=== PATIENT | female | born 1980 | race Caucasian/White ===

== ENCOUNTER 2017-08-16 14:09 | Emergency (ER) | payer SELFPAY ==
--- NOTE | 2017-08-16 15:10 | RAD REPORT ---
EXAM DESCRIPTION: RAD - Shoulder Left 2 View - 08/16/2017 3:01 pm CLINICAL HISTORY: Trauma, left shoulder pain COMPARISON: None. TECHNIQUE: Internal and external rotation views of the left shoulder were obtained. FINDINGS: There is no fracture or dislocation. AC joint is normal in appearance. No acute or suspici ous findings. IMPRESSION: Negative two-view left shoulder examination.
--- NOTE | 2017-08-16 15:10 | RAD REPORT ---
EXAM DESCRIPTION: RAD - Chest Pa And Lat (2 Views) - 08/16/2017 3:02 pm CLINICAL HISTORY: Fall, chest pain. COMPARISON: 08/18/2016, 03/07/2016 FINDINGS: The lungs are clear. The heart is normal in size. No displaced fractures. IMPRESSION: No acute or concerning finding suspected.
--- NOTE | 2017-08-16 15:47 | ER ---
Nurse's Notes [facility] Name: Ezequiel Leonard Age: 36 yrs Sex: Female : 1980 Arrival Date: 08/16/2017 Time: 14:11 Bed 27 Private MD: None, None Diagnosis: Rhomboid spasm/ strain Presentation: 08/16 14:32 Presenting complaint: Patient states: fell from standing position on Wednesday, hit left iw shoulder on a car and tried to catch herself and injured her left hand, having extreme pain to left shoulder blade and having pain when she takes a deep breath. Transition of care: patient was not received from another setting of care. Onset of symptoms was August 13, 2017. Risk Assessment: Do you want to hurt yourself or someone else? Patient reports no desire to harm self or others. Initial Sepsis Screen: Does the patient meet any 2 criteria? No. Patient's initial sepsis screen is negative. Does the patient have a suspected source of infection? No. Patient's initial sepsis screen is negative. Care prior to arrival: None. 14:32 Method Of Arrival: Ambulatory 14:32 Acuity: ADRIANNA 3 iw 14:40 Note pt also states she has an abscess on her buttock. 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 - Social history:: Smoking status: Patient uses tobacco products, smokes one-half pack cigarettes per day. - Ebola Screening: : Patient negative for fever greater than or equal to 101.5 degrees Fahrenheit, and additional compatible Ebola Virus Disease symptoms Patient denies exposure to infectious person Patient denies travel to an Ebola-affected area in the 21 days before illness onset No symptoms or risks identified at this time. Vital Signs: 14:35 BP 156 / 116; Pulse 84; Resp 18 S; Temp 98.1(TE); Pulse Ox 97% on R/A; Weight 74.84 kg; iw Height 5 ft. 7 in. (170.18 cm); Pain 10/10; 14:35 Body Mass Index 25.84 (74.84 kg, 170.18 cm) iw ED Course: 14:11 Patient arrived in ED. mr 14:12 None, None is Private Physician. mr 14:34 Triage completed. iw 14:35 Arm band placed on. iw 14:44 Niko Barrera MD is Attending Physician. ps1 14:51 Patient moved to radiology via wheelchair. kc2 14:56 X-ray completed. Patient tolerated procedure well. kc2 14:56 Patient moved back from radiology. kc2 14:56 Shoulder Left (2 View) XRAY In Process Unspecified. EDMS 14:56 Chest Pa And Lat (2 Views) XRAY In Process Unspecified. EDMS 15:44 Irma Larios, FIDE is Primary Nurse. tl3 15:45 Fidencio Boone MD is Referral Physician. ps1 16:14 X-ray completed. Portable x-ray completed in exam room. Patient tolerated procedure kc2 well. 16:16 Wrist Left (3 View) XRAY In Process Unspecified. EDMS Administered Medications: No medications were administered Outcome: 15:46 Discharge ordered by . ps1 17:04 Patient left the ED. aa5 Signatures: Dispatcher [employer] EDMS Jolene Aleman Jocelyne Rabago RN RN iw Kimberly Larson RN RN aa5 Maryam Reed kc2 Niko Barrera MD MD ps1 Irma Larios, FIDE RN tl3 Corrections: (The following items were deleted from the chart) 14:37 14:35 Pulse 84bpm; Resp 18bpm; Spontaneous; Pulse Ox 97% RA; Temp 98.1F Temporal; 74.84 iw kg; Height 5 ft. 7 in.; BMI: 25.8; Pain 10/10; iw 14:38 14:35 BP 152 / 125; Pulse 84bpm; Resp 18bpm; Spontaneous; Pulse Ox 97% RA; Temp 98.1F iw Temporal; 74.84 kg; Height 5 ft. 7 in.; BMI: 25.8; Pain 10/10; iw
--- NOTE | 2017-08-16 15:47 | EDPHYS ---
Physician Documentation [facility] Name: Ezequiel Leonard Age: 36 yrs Sex: Female : 1980 Arrival Date: 08/16/2017 Time: 14:11 Bed 27 Private MD: None, None ED Physician Niko Barrera HPI: 08/16 15:41 This 36 yrs old Female presents to ER via Ambulatory with complaints of Fall ps1 Injury, Shoulder Pain. 15:41 Onset was 3 days ago while [place] [employer] [place]. Trip and fall. Did not hit ps1 head. No LOC. FOOSH on left. Now has subscapular pain and left wrist pain. 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 No FND. FROM of shoulder. Pain rated moderate, worse with movement. . 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 - Social history:: Smoking status: Patient uses tobacco products, smokes one-half pack cigarettes per day. - Ebola Screening: : Patient negative for fever greater than or equal to 101.5 degrees Fahrenheit, and additional compatible Ebola Virus Disease symptoms Patient denies exposure to infectious person Patient denies travel to an Ebola-affected area in the 21 days before illness onset No symptoms or risks identified at this time. ROS: 15:41 Constitutional: Negative for fever, chills, and weight loss, Eyes: Negative for injury, ps1 pain, redness, and discharge, ENT: Negative for injury, pain, and discharge, Cardiovascular: Negative for chest pain, palpitations, and edema, Respiratory: Negative for shortness of breath, cough, wheezing, and pleuritic chest pain, Abdomen/GI: Negative for abdominal pain, nausea, vomiting, diarrhea, and constipation, Back: Negative for injury and pain, Skin: Negative for injury, rash, and discoloration, Neuro: Negative for headache, weakness, numbness, tingling, and seizure. 15:41 MS/extremity: Positive for left subscapular pain. Left wrist pain. Exam: 15:41 Constitutional: This is a well developed, well nourished patient who is awake, alert, ps1 and in no acute distress. Head/Face: Normocephalic, atraumatic. Eyes: Pupils equal round and reactive to light, extra-ocular motions intact. Lids and lashes normal. Conjunctiva and sclera are non-icteric and not injected. Chest/axilla: Normal chest wall appearance and motion. Nontender with no deformity. No lesions are appreciated. Cardiovascular: Regular rate and rhythm. No gallops, murmurs, or rubs. Normal PMI, no JVD. No pulse deficits. Respiratory: Lungs have equal breath sounds bilaterally, clear to auscultation and percussion. No rales, rhonchi or wheezes noted. No increased work of breathing, no retractions or nasal flaring. Abdomen/GI: Soft, non-tender, with normal bowel sounds. No distension or tympany. No guarding or rebound. No evidence of tenderness throughout. Neuro: Awake and alert, GCS 15, oriented to person, place, time, and situation. Cranial nerves II-XII grossly intact. Sensory grossly intact. Psych: Awake, alert, with orientation to person, place and time. Behavior, mood, and affect are within normal limits. 15:41 Musculoskeletal/extremity: has subscapular/rhomboid strain and spasm. Wrist is in a brace and NV intact distally. . Vital Signs: 14:35 BP 156 / 116; Pulse 84; Resp 18 S; Temp 98.1(TE); Pulse Ox 97% on R/A; Weight 74.84 kg; iw Height 5 ft. 7 in. (170.18 cm); Pain 10/10; 14:35 Body Mass Index 25.84 (74.84 kg, 170.18 cm) iw MDM: 15:24 Patient medically screened. ps1 15:41 Data reviewed: vital signs, nurses notes, radiologic studies, plain films. ED course: ps1 pain addressed. Spoke with patient about findings. Stable for discharge. If symptoms persist, MRI recommended in 2 weeks after swelling goes down. . 08/16 14:42 Order name: Shoulder Left (2 View) XRAY; Complete Time: 15:12 snw 08/16 14:42 Order name: Chest Pa And Lat (2 Views) XRAY; Complete Time: 15:12 snw 08/16 15:48 Order name: Wrist Left (3 View) XRAY; Complete Time: 16:25 ps1 Administered Medications: No medications were administered Disposition: 08/16/17 15:46 Discharged to Home. Impression: Rhomboid spasm/ strain. - Condition is Stable. - Discharge Instructions: Muscle Cramps and Spasms, Wrist Pain. - Prescriptions for Anaprox DS 550 mg Oral Tablet - take 1 tablet by ORAL route every 12 hours As needed; 20 tablet. Robaxin 500 mg Oral Tablet - take 2 tablet by ORAL route every 6 hours As needed; 40 tablet. Medrol (Fuad) 4 mg Oral Tablets, Dose Pack - take 1 tablet by ORAL route as directed - follow package instructions; 1 packet. - Medication Reconciliation Form, Thank You Letter, Antibiotic Education, Prescription Opioid Use form. - Follow up: Fidencio Boone MD; When: As needed; Reason: Further diagnostic work-up, Recheck today's complaints, Continuance of care, Re-evaluation by your physician. Follow up: Emergency Department; When: As needed; Reason: Worsening of condition. - Problem is new. - Symptoms are unchanged. Signatures: Dispatcher [employer] EDMS Jocelyne Rabago RN RN iw Kimberly Larson RN RN aa5 Niko Barrera MD MD ps1 Corrections: (The following items were deleted from the chart) 17:04 15:46 08/16/2017 15:46 Discharged to Home. Impression: Rhomboid spasm/ strain. aa5 Condition is Stable. Forms are Medication Reconciliation Form, Thank You Letter, Antibiotic Education, Prescription Opioid Use. Follow up: Dr. Fidencio Boone; When: As needed; Reason: Further diagnostic work-up, Recheck today's complaints, Continuance of care, Re-evaluation by your physician. Follow up: Emergency Department; When: As needed; Reason: Worsening of condition. Problem is new. Symptoms are unchanged. ps1
[2017-08-16] MEDS ORDERED: DEXAMETHASONE 10 MG/ML VIAL ONE (16:02)
[2017-08-16] MEDS ORDERED: KETOROLAC 30 MG/ML INJ ONE (16:03)
--- NOTE | 2017-08-16 16:21 | RAD REPORT ---
EXAM DESCRIPTION: RAD - Wrist Left 3 View - 08/16/2017 4:17 pm CLINICAL HISTORY: Fall, wrist pain COMPARISON: None. FINDINGS: No fracture is identified. There is no dislocation or periosteal reaction noted. No foreig n body or other soft tissue abnormality. IMPRESSION: Negative left wrist examination.
== END 2017-08-16 17:04 | disposition home or self-care (01) ==
LOC: ER 14:09
DX: S46.812A Strain of other muscles, fascia and tendons at shoulder and upper arm level, left arm, initial encounter (principal); M25.532 Pain in left wrist; G93.5 Compression of brain; F17.210 Nicotine dependence, cigarettes, uncomplicated; W01.0XXA Fall on same level from slipping, tripping and stumbling without subsequent striking against object, initial encounter; Y93.9 Activity, unspecified; Y92.9 Unspecified place or not applicable; Y99.9 Unspecified external cause status
CPT/HCPCS: 71046; 99282; J1100

== ENCOUNTER 2020-10-15 15:28 | Emergency (ER) | payer OTHER ==
--- NOTE | 2020-10-15 17:54 | RAD REPORT ---
EXAM DESCRIPTION: Lukasz Velez (2 Views)10/15/2020 5:12 pm CLINICAL HISTORY: sob COMPARISON: 2018 FINDINGS: The lungs appear clear of acute infiltrate. The heart is normal size IMPRESSION: No acute abnormalities displayed
[2020-10-15 18:39] LABS: Absolute Lymphocytes (CBC) 2.2 K/uL (0.7-4.9); Basophils % 0.7 % (0-1.3); Hematocrit 43.7 % (36.0-45.0); Lymphocytes % 23.5 % (15.3-44.8); MPV 7.2 fL (7.6-11.3); RBC Red Blood Cell Count 4.43 M/uL (3.86-4.86)
[2020-10-15 18:40] LABS: Protime INR 0.96
[2020-10-15 19:04] LABS: ALT/SGPT 20 U/L (12-78); AST/SGOT 8 U/L (15-37); Albumin 3.7 g/dL (3.4-5.0); Alkaline Phosphatase 55 U/L (45-117); BUN Blood Urea Nitrogen 7 mg/dL (7-18); Bicarbonate 28 mmol/L (21-32); Bilirubin Direct < 0.1 mg/dL (0-0.2); Bilirubin Total 0.3 mg/dL (0.2-1.0); Glucose Level 96 mg/dL (74-106); Lipase 122 U/L (73-393); NT PRO-BNP 47 pg/mL (<125); Protein, Total 6.8 g/dL (6.4-8.2); Sodium Level 142 mmol/L (136-145); Troponin (Emerg Dept Use Only) < 0.02 ng/mL (0.0-0.045)
[2020-10-15] MEDS ORDERED: LORazepam 2 MG/ML VIAL ONE (19:15)
--- NOTE | 2020-10-15 19:23 | RAD REPORT ---
EXAM DESCRIPTION: CT - Angio Aorta For Dissection - 10/15/2020 7:06 pm CLINICAL HISTORY: . Chest and abd pain COMPARISON: 2017 TECHNIQUE: Computed tomography angiography of the chest, abdomen pelvis were obtained. 100 cc Isovue 370 was administered intravenously. Coronal and sagittal reconstruction were performed. MIP 3D reconstruction was performed All CT scans are performed using dose optimization technique as appropriate and may include automated exposure control or mA/KV adjustment according to patient size. FINDINGS: An aortic dissection is not seen. An aortic aneurysm is not displayed. Mild narrowing of the celiac artery. SMA and SOUMYA are patent . A lung consolidation is not present. A pericardial effusion is not seen. A pleural effusion is not n oted. The liver,spleen, pancreas adrenals kidneys demonstrate no significant abnormality. The appendix is normal. There no evidence diverticulitis. 3.5 centimeters cystic left adnexal mass. No significant free fluid Small left inguinal hernia IMPRESSION: Negative for an aortic dissection. 2.5 centimeter complex cystic left adnexal mass likely benign. No significant free fluid. Follow-up ultrasound in a couple of months recommended for re-evaluation
--- NOTE | 2020-10-15 19:44 | EDPHYS ---
Physician Documentation [facility] Name: Ezequiel Leonard Age: 39 yrs Sex: Female : 1980 Arrival Date: 10/15/2020 Time: 15:31 Bed 23 Private MD: SUSAN Physician Scooby Griffin HPI: 10/15 18:12 This 39 yrs old Female presents to ER via Ambulatory with complaints of vito Shortness Of Breath. 18:12 The patient has shortness of breath at rest. Onset: The symptoms/episode began/occurred vito this morning. Duration: The symptoms are continuous, and are steadily getting worse. The patient's shortness of breath is aggravated by exertion, walking, is alleviated by nothing. Associated signs and symptoms: The patient has no apparent associated signs or symptoms. Severity of symptoms: At their worst the symptoms were moderate severe in the emergency department the symptoms are unchanged. The patient has not experienced similar symptoms in the past. 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 Flu vaccine is not up to date. - Social history:: Smoking status: Patient reports the use of cigarette tobacco products, smokes one-half pack cigarettes per day. ROS: 18:12 Constitutional: Negative for fever, chills, and weight loss, Eyes: Negative for injury, vito pain, redness, and discharge, ENT: Negative for injury, pain, and discharge, Neck: Negative for injury, pain, and swelling, Cardiovascular: Negative for chest pain, palpitations, and edema, Abdomen/GI: Negative for abdominal pain, nausea, vomiting, diarrhea, and constipation, : Negative for injury, bleeding, discharge, and swelling, MS/Extremity: Negative for injury and deformity, Skin: Negative for injury, rash, and discoloration, Neuro: Negative for headache, weakness, numbness, tingling, and seizure, Psych: Negative for depression, anxiety, suicide ideation, homicidal ideation, and hallucinations, Allergy/Immunology: Negative for hives, rash, and allergies, Endocrine: Negative for neck swelling, polydipsia, polyuria, polyphagia, and marked weight changes, Hematologic/Lymphatic: Negative for swollen nodes, abnormal bleeding, and unusual bruising. 18:12 Respiratory: Positive for cough. Exam: 18:19 Constitutional: This is a well developed, well nourished patient who is awake, alert, vito and in no acute distress. Head/Face: Normocephalic, atraumatic. Eyes: Pupils equal round and reactive to light, extra-ocular motions intact. Lids and lashes normal. Conjunctiva and sclera are non-icteric and not injected. Cornea within normal limits. Periorbital areas with no swelling, redness, or edema. ENT: Nares patent. No nasal discharge, no septal abnormalities noted. Tympanic membranes are normal and external auditory canals are clear. Oropharynx with no redness, swelling, or masses, exudates, or evidence of obstruction, uvula midline. Mucous membranes moist. Neck: Trachea midline, no thyromegaly or masses palpated, and no cervical lymphadenopathy. Supple, full range of motion without nuchal rigidity, or vertebral point tenderness. No Meningismus. Chest/axilla: Normal chest wall appearance and motion. Nontender with no deformity. No lesions are appreciated. Cardiovascular: Regular rate and rhythm with a normal S1 and S2. No gallops, murmurs, or rubs. Normal PMI, no JVD. No pulse deficits. Respiratory: Lungs have equal breath sounds bilaterally, clear to auscultation and percussion. No rales, rhonchi or wheezes noted. No increased work of breathing, no retractions or nasal flaring. Abdomen/GI: Soft, non-tender, with normal bowel sounds. No distension or tympany. No guarding or rebound. No evidence of tenderness throughout. Back: No spinal tenderness. No costovertebral tenderness. Full range of motion. Skin: Warm, dry with normal turgor. Normal color with no rashes, no lesions, and no evidence of cellulitis. MS/ Extremity: Pulses equal, no cyanosis. Neurovascular intact. Full, normal range of motion. Neuro: Awake and alert, GCS 15, oriented to person, place, time, and situation. Cranial nerves II-XII grossly intact. Motor strength 5/5 in all extremities. Sensory grossly intact. Cerebellar exam normal. Normal gait. Psych: Awake, alert, with orientation to person, place and time. Behavior, mood, and affect are within normal limits. 18:19 Musculoskeletal/extremity: DVT Exam: No signs of deep vein thrombosis. no pain, no swelling, no tenderness, negative Homans' sign noted on exam, no appreciated bluish discoloration, no erythema, no increased warmth. 19:20 Back: pain, that is mild, of the left subscapular area, right subscapular area and vito thoracic area, ROM is painless, normal spinal alignment noted, CVA tenderness, is absent, vertebral tenderness, is not appreciated, muscle spasm, is not present. 19:21 ECG was reviewed by the Attending Physician. [facility] Vital Signs: 16:29 BP 149 / 118; Pulse 104; Resp 18 S; Temp 98.0(TE); Pulse Ox 99% on R/A; Weight 81.65 kg aa5 (R); Height 5 ft. 7 in. (170.18 cm) (R); 19:40 BP 132 / 89; Pulse 82; Resp 16 S; Pulse Ox 99% on R/A; iw 16:29 Body Mass Index 28.19 (81.65 kg, 170.18 cm) aa5 MDM: 17:33 Patient medically screened. [facility] 18:22 Differential diagnosis: Cholelithiasis Peptic Ulcer Renal Infarction Ureterolithiasis vito pneumonia, Pneumothorax Pulmonary Embolism reactive airway disease, Unstable Angina vertebral fracture, dissection. Antibiotic administration: Not indicated. The patient's Wells Deep Vein Thrombosis Score was calculated as follows: Total Score: 0-2 Pts- Low Risk. The patient's pulmonary embolism risk score was calculated as follows: Total Score: 0-2 points. This patient was found to be at low risk for a pulmonary embolism by using the Well's assessment criteria. Immunization status:. Data reviewed: vital signs, nurses notes, lab test result(s), EKG, radiologic studies, CT scan, plain films. Data interpreted: night monitor: rate is 104 beats/min, rhythm is regular, Pulse oximetry: on room air is 99 %. Test interpretation: by ED physician or midlevel provider: ECG, plain radiologic studies. Counseling: I had a detailed discussion with the patient and/or guardian regarding: the historical points, exam findings, and any diagnostic results supporting the discharge/admit diagnosis, lab results, radiology results. 10/15 18:11 Order name: Basic Metabolic Panel [facility] 10/15 18:11 Order name: CBC with Diff [facility] 10/15 18:11 Order name: LFT's; Complete Time: 19:18 vito 10/15 18:11 Order name: Magnesium; Complete Time: 19:18 vito 10/15 18:11 Order name: NT PRO-BNP; Complete Time: 19:18 vito 10/15 18:11 Order name: PT-INR; Complete Time: 18:53 vito 10/15 16:32 Order name: Chest Pa And Lat (2 Views) XRAY; Complete Time: 18:53 aa5 10/15 18:11 Order name: Troponin (emerg Dept Use Only); Complete Time: 19:18 vito 10/15 18:11 Order name: Lipase; Complete Time: 19:18 vito 10/15 18:11 Order name: Basic Metabolic Panel; Complete Time: 19:18 EDMS 10/15 18:11 Order name: CBC with Automated Diff; Complete Time: 18:53 EDMS 10/15 20:17 Order name: SARS-COV-2 RT PCR EDMS 10/15 18:11 Order name: EKG; Complete Time: 18:12 [facility] 10/15 18:11 Order name: Cardiac monitoring [facility] 10/15 18:11 Order name: EKG - Nurse/Tech [facility] 10/15 18:11 Order name: IV Saline Lock; Complete Time: 18:18 [facility] 10/15 18:11 Order name: Labs collected and sent; Complete Time: 18:18 [facility] 10/15 18:12 Order name: CT Aorta for Dissection; Complete Time: 19:42 bd 10/15 18:11 Order name: O2 Sat Monitoring [facility] 10/15 18:11 Order name: Urine Dipstick-Ancillary (obtain specimen) [facility] EC:21 Rate is 78 beats/min. Rhythm is regular. QRS [place] is Normal. [place] interval is normal. QRS vito interval is normal. QT interval is normal. No Q waves. T waves are Normal. No ST changes noted. Clinical impression: NSR w/ Non-specific ST/T Changes and No evidence of ischemia. Interpreted by me. Reviewed by me. Administered Medications: 19:03 Drug: Ativan (LORazepam) 0.5 mg Route: IVP; Site: right antecubital; iw 21:22 Follow up: Response: No adverse reaction iw 19:38 Not Given (Physician Discretion): Benadryl (diphenhydrAMINE) 50 mg IVP once iw 19:38 Not Given (Physician Discretion): Pepcid (famotidine) 20 mg IVP once; dilute with 10 mL iw 0.9% NaCl; give over 2 minutes 19:38 Not Given (Physician Discretion): SOLU-Medrol (methylPrednisoLONE) 125 mg IVP once iw 19:41 Drug: morphine 4 mg Route: IVP; Site: left antecubital; iw 21:23 Follow up: Response: No adverse reaction iw 19:41 Drug: Zofran (Ondansetron) 4 mg Route: IVP; Site: right antecubital; iw 21:22 Follow up: Response: No adverse reaction iw 21:23 Follow up: Response: No adverse reaction iw 19:42 Drug: NS 0.9% 500 ml Route: IV; Rate: bolus; Site: right antecubital; iw 20:10 Follow up: IV Status: Completed infusion iw 21:23 Follow up: IV Intake: 500ml iw 21:24 Follow up: Response: No adverse reaction; IV Intake: 500ml iw 19:42 Not Given (not indicatedd): Labetalol 20 mg IVP once over 2 mins ak2 19:49 Not Given (Physician Discretion): Norvasc (amlodipine) 5 mg PO once ak2 Disposition Summary: 10/15/20 19:43 Discharge Ordered Location: Home vito Problem: new vito Symptoms: have improved vito Condition: Stable vito Diagnosis - Strain of muscle and tendon of back wall of thorax vito - Cough vito - Essential (primary) hypertension vito - Other ovarian cysts vito Followup: vito - With: Private Physician - When: 2 - 3 days - Reason: Recheck today's complaints, Continuance of care, Re-evaluation by your physician Followup: vito - With: - When: 2 - 3 days - Reason: Recheck today's complaints, Continuance of care, Re-evaluation by your physician Discharge Instructions: - Discharge Summary Sheet vito - Hypertension, Adult vito - Muscle Strain vito - Hypertension, Adult, [id number]-[id number] vito - Cough, Adult, [id number] vito - How to Take Your Blood Pressure, Vupr-da-Iani vito - Muscle Strain, [id number] vito - Managing Your Hypertension vito Forms: - Medication Reconciliation Form vito - Thank You Letter vito - Antibiotic Education vito - Prescription Opioid Use [facility] Prescriptions: - acetaminophen-codeine 300-15 mg Oral tablet - take 2 tablet by ORAL route every 4-6 hours; 24 tablet; Refills: 0, Product [facility] Selection Permitted - Norvasc 5 mg Oral Tablet - take 1 tablet by ORAL route once daily; 20 tablet; Refills: 0, Product [facility] Selection Permitted - Cyclobenzaprine 5 mg Oral Tablet - take 1 tablet by ORAL route 3 times per day As needed; 15 tablet; Refills: 0, [facility] Product Selection Permitted Signatures: Dispatcher [employer] EDMS Scooby Griffin MD MD cha Williams, Irene RN RN iw Kimberly Larson RN RN aa5 Ben Martin2 Corrections: (The following items were deleted from the chart) 18:14 18:12 Chest Single View+RAD.RAD.BRZ ordered. EDMS EDMS 18:15 18:12 Angio Aorta For Dissection+CT.RAD.BRZ ordered. EDMS EDMS 19:02 18:12 CORONAVIRUS+MR.LAB.BRZ ordered. EDMS EDMS
--- NOTE | 2020-10-15 19:44 | ER ---
Nurse's Notes [facility] Name: Ezequiel Leonard Age: 39 yrs Sex: Female : 1980 Arrival Date: 10/15/2020 Time: 15:31 Bed 23 Private MD: Diagnosis: Strain of muscle and tendon of back wall of thorax;Cough;Essential (primary) hypertension;Other ovarian cysts Presentation: 10/15 16:29 Chief complaint: Patient states: "I was clearing my nose this morning and I felt like aa5 somebody punched me on my back and I called my doctor and they said to come here because my blood pressure is high". Pt c/o upper back pain and SOB. Coronavirus screen: At this time, the client does not indicate any symptoms associated with coronavirus-19. Ebola Screen: Patient negative for fever greater than or equal to 101.5 degrees Fahrenheit, and additional compatible Ebola Virus Disease symptoms. Initial Sepsis Screen: Does the patient meet any 2 criteria? HR > 90 bpm. Does the patient have a suspected source of infection? No. Patient's initial sepsis screen is negative. Risk Assessment: Do you want to hurt yourself or someone else? Patient reports no desire to harm self or others. Onset of symptoms was October 2020. 16:29 Method Of Arrival: Ambulatory aa5 16:29 Acuity: ADRIANNA 3 aa5 Triage Assessment: 21:21 General: Appears in no apparent distress. Behavior is calm, cooperative. Respiratory: iw Reports shortness of breath Onset: The symptoms/episode began/occurred gradually, the patient has mild shortness of breath. 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 Flu vaccine is not up to date. - Social history:: Smoking status: Patient reports the use of cigarette tobacco products, smokes one-half pack cigarettes per day. Screenin:49 Abuse screen: Denies threats or abuse. Denies injuries from another. Nutritional iw screening: No deficits noted. Tuberculosis screening: No symptoms or risk factors identified. Fall Risk None identified. Assessment: 19:49 Reassessment: Patient appears in no apparent distress at this time. Patient and/or iw family updated on plan of care and expected duration. Pain level reassessed. Patient is alert, oriented x 3, equal unlabored respirations, skin warm/dry/pink. Patient states feeling better. Patient states symptoms have improved. 21:21 Pain: Denies pain. Cardiovascular: No deficits noted. Rhythm is regular. Respiratory: iw Airway is patent Respiratory effort is even, unlabored, Breath sounds are clear bilaterally. Vital Signs: 16:29 BP 149 / 118; Pulse 104; Resp 18 S; Temp 98.0(TE); Pulse Ox 99% on R/A; Weight 81.65 kg aa5 (R); Height 5 ft. 7 in. (170.18 cm) (R); 19:40 BP 132 / 89; Pulse 82; Resp 16 S; Pulse Ox 99% on R/A; iw 16:29 Body Mass Index 28.19 (81.65 kg, 170.18 cm) aa5 ED Course: 15:31 Patient arrived in ED. mr 16:28 Arm band placed on. aa5 16:31 Triage completed. aa5 17:11 Chest Pa And Lat (2 Views) XRAY In Process Unspecified. EDMS 17:33 Scooby Griffin MD is Attending Physician. vito 17:47 Jocelyne Rabago, FIDE is Primary Nurse. iw 19:06 CT Aorta for Dissection In Process Unspecified. EDMS 19:43 Cooper Vines MD is Referral Physician. vito 21:21 No provider procedures requiring assistance completed. IV discontinued. iw 21:22 Patient has correct armband on for positive identification. iw Administered Medications: 19:03 Drug: Ativan (LORazepam) 0.5 mg Route: IVP; Site: right antecubital; iw 21:22 Follow up: Response: No adverse reaction iw 19:38 Not Given (Physician Discretion): Benadryl (diphenhydrAMINE) 50 mg IVP once iw 19:38 Not Given (Physician Discretion): Pepcid (famotidine) 20 mg IVP once; dilute with 10 mL iw 0.9% NaCl; give over 2 minutes 19:38 Not Given (Physician Discretion): SOLU-Medrol (methylPrednisoLONE) 125 mg IVP once iw 19:41 Drug: morphine 4 mg Route: IVP; Site: left antecubital; iw 21:23 Follow up: Response: No adverse reaction iw 19:41 Drug: Zofran (Ondansetron) 4 mg Route: IVP; Site: right antecubital; iw 21:22 Follow up: Response: No adverse reaction iw 21:23 Follow up: Response: No adverse reaction iw 19:42 Drug: NS 0.9% 500 ml Route: IV; Rate: bolus; Site: right antecubital; iw 20:10 Follow up: IV Status: Completed infusion iw 21:23 Follow up: IV Intake: 500ml iw 21:24 Follow up: Response: No adverse reaction; IV Intake: 500ml iw 19:42 Not Given (not indicatedd): Labetalol 20 mg IVP once over 2 mins ak2 19:49 Not Given (Physician Discretion): Norvasc (amlodipine) 5 mg PO once ak2 Intake: 21:23 IV: 500ml; Total: 500ml. iw 21:24 IV: 500ml; Total: 1000ml. iw Outcome: 19:43 Discharge ordered by MD. padron 20:34 Patient left the ED. iw 21:22 Discharged to iw 21:22 Discharged to home 21:22 Discharged to home ambulatory. 21:22 Condition: good 21:22 Discharge instructions given to patient. Signatures: Dispatcher [employer] Scooby Ron MD MD cha Rivera, Alyssia Jocelyne Madera, RN RN Kimberly Armenta RN RN Ben Banda ak2 Corrections: (The following items were deleted from the chart) 19:50 19:49 Fall Risk Fall in past 12 months (25 points). iw iw
[2020-10-15] MEDS ORDERED: MORPHINE 4 MG/ML SYR ONE (19:59)
[2020-10-15] MEDS ORDERED: METHYLPREDNISOLONE 125 MG INJ ONE (19:59)
[2020-10-15] MEDS ORDERED: ONDANSETRON 4 MG/2 ML VIAL ONE (19:59)
[2020-10-15] MEDS ORDERED: DIPHENHYDRAMINE 50 MG/ML VIAL ONE (19:59)
[2020-10-15] MEDS ORDERED: LABETALOL 20 MG/4ML SYRINGE IV ONE (20:00)
[2020-10-15] MEDS ORDERED: FAMOTIDINE 20 MG/2 ML VIAL IV ONE (20:00)
[2020-10-15] MEDS ORDERED: NA CHLORIDE 0.9% 500 ML ONE (20:00)
[2020-10-15 21:21] VITALS: TEMP 98; O2SAT 99
[2020-10-15 21:23] VITALS: BP 132/89
--- NOTE | 2020-10-16 17:00 | EKG ---
Test Date: 2020-10-15 Test Time: 18:44:11 Rod Buster Helper: JAN MEASUREMENT RESULTS: Intervals: Rate: 78 WI: 148 QRSD: 76 QT: 394 QTc: 449 Zirconia: P: 20 WI: 148 QRS: 32 T: 35 INTERPRETIVE STATEMENTS: Normal sinus rhythm Cannot rule out Anterior infarct, age undetermined Abnormal ECG Compared to ECG 08/18/2016 09:49:53 Myocardial infarct finding now present Electronically Signed On 10-16-20 16:58:50 CDT by Cooper Vines
== END 2020-10-15 20:34 | disposition home or self-care (01) ==
LOC: ER 15:28
DX: R05 Cough (principal); S29.012A Strain of muscle and tendon of back wall of thorax, initial encounter; I10 Essential (primary) hypertension; N83.299 Other ovarian cyst, unspecified side; F17.210 Nicotine dependence, cigarettes, uncomplicated; Z88.1 Allergy status to other antibiotic agents; Z88.3 Allergy status to other anti-infective agents; Z20.822 Contact with and (suspected) exposure to COVID-19
CPT/HCPCS: 93005; 85025; 80048; 36415; 83735; 85610; 80076; 84484; 83690; 83880; 71275; 74175; 71046; U0003; Q9967; J1200; J7040; J2930; J2405; 99283

== ENCOUNTER 2021-03-07 12:56 | Emergency (ER) | payer OTHER ==
[2021-03-07] MEDS ORDERED: DIPHENHYDRAMINE 25 MG TAB/CAP ONE (15:40)
[2021-03-07] MEDS ORDERED: METHYLPREDNISOLONE 125 MG INJ ONE (15:40)
[2021-03-07] MEDS ORDERED: FAMOTIDINE 20 MG TAB ONE (15:41)
--- NOTE | 2021-03-07 16:43 | EDPHYS ---
Physician Documentation [facility] Name: Ezequiel Leonard Age: 40 yrs Sex: Female : 1980 Arrival Date: 03/07/2021 Time: 12:57 Bed 12 Private MD: ED Physician Meeta Lamb HPI: 03/07 15:34 This 40 yrs old Female presents to ER via Ambulatory with complaints of Allergic cp Reaction, Ear Swelling, Rash. 15:34 The patient presents with rash, of the back, chest, abdomen and right arm. Associated cp signs and symptoms: Pertinent negatives: fever. 15:34 Possible causes: The patient has no known obvious cause for the symptoms. cp 15:34 Severity of symptoms: in the emergency department the symptoms are unchanged. cp 15:34 Onset: The symptoms/episode began/occurred yesterday. cp 15:34 The patient has experienced similar episodes in the past, a few times. cp Historical: - Allergies: 13:29 Ceclor; ss 13:29 mycins; ss - PMHx: 13:29 lopez malformation; Hypertensive disorder; problem with sweat glands; ss - PSHx: 13:29 section; nose sx; ss - Immunization history:: Client reports having NOT received the Covid vaccine. - Social history:: Smoking status: Patient reports the use of cigarette tobacco products, smokes one-half pack cigarettes per day. ROS: 15:38 Eyes: Negative for injury, pain, redness, and discharge. cp 15:38 Constitutional: Positive for chills, Negative for body aches, fever, poor PO intake. 15:38 Cardiovascular: Negative for chest pain. 15:38 Respiratory: Negative for cough, shortness of breath, wheezing. 15:38 Abdomen/GI: Negative for vomiting, diarrhea, constipation. 15:38 Skin: Positive for rash, of the face, back, chest, abdomen and right arm. 15:38 All other systems are negative. cp Exam: 15:39 Constitutional: The patient appears in no acute distress, alert, awake, non-toxic, well cp developed, well nourished. 15:39 Head/face: Noted is erythema, that is mild, of the right ear and left ear and face. 15:39 Eyes: Periorbital structures: appear normal, Conjunctiva: normal, no exudate, no injection, Sclera: no appreciated abnormality, Lids and lashes: appear normal, bilaterally. 15:39 ENT: Ear canal(s): are normal, clear, TM's: dullness, bilaterally, Nose: is normal, Posterior pharynx: Airway: no evidence of obstruction, patent. 15:39 Neck: ROM/movement: is normal, is supple, without pain, no range of motions limitations, no meningismus. 15:39 Cardiovascular: Rate: tachycardic. 15:39 Respiratory: the patient does not display signs of respiratory distress, Respirations: normal, no use of accessory muscles, no retractions, labored breathing, is not present, Breath sounds: are clear throughout, no decreased breath sounds, no stridor, no wheezing. 15:39 Abdomen/GI: Exam negative for discomfort, distension, guarding, Inspection: abdomen appears normal. 15:39 Skin: consistent with hives, on the chest, abdomen and right arm. Vital Signs: 13:29 BP 126 / 95; Pulse 120; Resp 20; Temp 98.2(O); Pulse Ox 97% on R/A; Weight 81.65 kg; ss Height 5 ft. 7 in. (170.18 cm); Pain 7/10; 16:35 BP 128 / 89; Pulse 105; Resp 18; Pulse Ox 96% ; jh5 13:29 Body Mass Index 28.19 (81.65 kg, 170.18 cm) ss MDM: 15:48 Patient medically screened. cp 16:00 Differential diagnosis: anaphylaxis, angioedema, urticaria. 16:42 Data reviewed: vital signs, nurses notes. 16:42 Counseling: I had a detailed discussion with the patient and/or guardian regarding: the cp historical points, exam findings, and any diagnostic results supporting the discharge/admit diagnosis, the need for outpatient follow up, an allergy/college specialist, to return to the emergency department if symptoms worsen or persist or if there are any questions or concerns that arise at home. Response to treatment: the patient's symptoms have mildly improved after treatment, and as a result, I will discharge patient. 03/07 16:28 Order name: Vital Signs; Complete Time: 16:35 cp Administered Medications: 15:43 Drug: Pepcid (famotidine) 20 mg Route: PO; [facility] 17:23 Follow up: Response: No adverse reaction; Marked relief of symptoms ss 15:44 Drug: SOLU-Medrol (methylPREDNISolone sodium succinate) 125 mg Route: IM; Site: right 5 gluteus; 17:23 Follow up: Response: No adverse reaction; Marked relief of symptoms ss 15:44 Drug: Benadryl (diphenhydrAMINE) 50 mg Route: PO; jh5 17:23 Follow up: Response: No adverse reaction; Marked relief of symptoms ss Disposition: 17:00 Chart complete. cp Disposition Summary: 03/07/21 16:42 Discharge Ordered Location: Home cp Problem: new cp Symptoms: have improved cp Condition: Stable cp Diagnosis - Allergy, unspecified cp Followup: cp - With: Kirk Triana MD - When: next week - Reason: Recheck today's complaints Discharge Instructions: - Discharge Summary Sheet cp - Hives cp Forms: - Medication Reconciliation Form cp - Thank You Letter cp - Antibiotic Education cp - Prescription Opioid Use cp Prescriptions: - Pepcid 20 mg Oral Tablet - take 1 tablet by ORAL route every 12 hours for 10 days; 20 tablet; Refills: 0, cp Product Selection Permitted - Prednisone 20 mg Oral Tablet - take 2 tablets by ORAL route once daily for 5 days then take 1 tablet daily for cp 3 days, then take 1/2 tablet daily for 2 days and then off; 14 tablet; Refills: 0, Product Selection Permitted Addendum: 03/09/2021 18:51 Co-signature as Attending Physician, Meeta katz a2 Signatures: Diane Triplett RN RN ss Scooby Villela PA PA cp Meeta Lamb MD MD ma2 Cathy Odom RN RN jh5
--- NOTE | 2021-03-07 16:43 | ER ---
Nurse's Notes [facility] Name: Ezequiel Leonard Age: 40 yrs Sex: Female : 1980 Arrival Date: 03/07/2021 Time: 12:57 Bed 12 Private MD: Diagnosis: Allergy, unspecified Presentation: 03/07 13:28 Chief complaint: Patient states: swelling to ears, rash on chest, neck, breast and ss stomach that began after fishing yesterday. Coronavirus screen: Client denies travel out of the [place] in the last 14 days. Ebola Screen: Patient denies exposure to infectious person. Patient denies travel to an Ebola-affected area in the 21 days before illness onset. Onset: The symptoms/episode began/occurred yesterday. Anaphylaxis evaluation, no signs or symptoms of anaphylaxis were noted. Initial Sepsis Screen: Does the patient meet any 2 criteria? No. Patient's initial sepsis screen is negative. Does the patient have a suspected source of infection? No. Patient's initial sepsis screen is negative. Risk Assessment: Do you want to hurt yourself or someone else? Patient reports no desire to harm self or others. Onset of symptoms was March 06, 2021. 13:28 Method Of Arrival: Ambulatory ss 13:28 Acuity: ADRIANNA 3 ss Triage Assessment: 15:48 General: Appears in no apparent distress. Behavior is calm, cooperative. 5 Historical: - Allergies: 13:29 Ceclor; ss 13:29 mycins; ss - PMHx: 13:29 lopez malformation; Hypertensive disorder; problem with sweat glands; ss - PSHx: 13:29 section; nose sx; ss - Immunization history:: Client reports having NOT received the Covid vaccine. - Social history:: Smoking status: Patient reports the use of cigarette tobacco products, smokes one-half pack cigarettes per day. Screenin:48 Abuse screen: Denies threats or abuse. Denies injuries from another. Nutritional 5 screening: No deficits noted. Tuberculosis screening: No symptoms or risk factors identified. Fall Risk None identified. Assessment: 15:48 Pain: Denies pain. Respiratory: Airway is patent Respiratory effort is even, unlabored, 5 17:23 Reassessment: Patient appears in no apparent distress at this time. Patient and/or ss family updated on plan of care and expected duration. Pain level reassessed. Patient is alert, oriented x 3, equal unlabored respirations, skin warm/dry/pink. Patient states feeling better. Patient states symptoms have improved. Vital Signs: 13:29 BP 126 / 95; Pulse 120; Resp 20; Temp 98.2(O); Pulse Ox 97% on R/A; Weight 81.65 kg; Height 5 ft. 7 in. (170.18 cm); Pain 7/10; 16:35 BP 128 / 89; Pulse 105; Resp 18; Pulse Ox 96% ; jh5 13:29 Body Mass Index 28.19 (81.65 kg, 170.18 cm) ED Course: 12:57 Patient arrived in ED. ds1 13:29 Triage completed. ss 13:29 Arm band placed on right wrist. ss 15:34 Scooby Villela PA is PHCP. cp 15:34 Meeta Lamb MD is Attending Physician. cp 15:38 Cathy Odom, FIDE is Primary Nurse. 5 16:35 Patient has correct armband on for positive identification. Bed in low position. Call [facility] light in reach. Side rails up X 1. 16:42 Kirk Triana MD is Referral Physician. cp 17:23 No provider procedures requiring assistance completed. Patient did not have IV access ss during this emergency room visit. Administered Medications: 15:43 Drug: Pepcid (famotidine) 20 mg Route: PO; [facility] 17:23 Follow up: Response: No adverse reaction; Marked relief of symptoms 15:44 Drug: SOLU-Medrol (methylPREDNISolone sodium succinate) 125 mg Route: IM; Site: right [facility] gluteus; 17:23 Follow up: Response: No adverse reaction; Marked relief of symptoms 15:44 Drug: Benadryl (diphenhydrAMINE) 50 mg Route: PO; [facility] 17:23 Follow up: Response: No adverse reaction; Marked relief of symptoms Outcome: 16:42 Discharge ordered by . cp 17:23 Discharged to home ambulatory. 17:23 Condition: good 17:23 Discharge instructions given to patient, Instructed on discharge instructions, follow up and referral plans. Demonstrated understanding of instructions, follow-up care, Prescriptions given X 2. 17:23 Patient left the ED. Signatures: Ca Petit ds1 Diane Triplett RN RN ss Scooby Villela PA PA cp Rees, Jessica RN RN jh5 Corrections: (The following items were deleted from the chart) 13:30 13:28 Acuity: ADRIANNA 4 ss ss
[2021-03-07 17:28] VITALS: TEMP 98.2
[2021-03-07 17:29] VITALS: BP 128/89; O2SAT 96
== END 2021-03-07 17:23 | disposition home or self-care (01) ==
LOC: ER 12:56
DX: R21 Rash and other nonspecific skin eruption (principal); I10 Essential (primary) hypertension; F17.210 Nicotine dependence, cigarettes, uncomplicated; Z91.09 Other allergy status, other than to drugs and biological substances; Z88.1 Allergy status to other antibiotic agents; Z88.3 Allergy status to other anti-infective agents
CPT/HCPCS: 96372; 99283; J2930

== ENCOUNTER 2021-09-30 19:41 | Emergency (ER) | payer OTHER, SELFPAY ==
[2021-09-30] MEDS ORDERED: METHYLPREDNISOLONE 125 MG INJ ONE (20:30)
[2021-09-30] MEDS ORDERED: ACETAMINOPHEN 500 MG TAB ONE (20:30)
[2021-09-30] MEDS ORDERED: DIPHENHYDRAMINE 50 MG/ML VIAL ONE (20:30)
[2021-09-30] MEDS ORDERED: ALBUTEROL INHALER 60 PUFF/8 GM IH ONE (20:31)
--- NOTE | 2021-09-30 22:16 | ER ---
Nurse's Notes [facility] Name: Ezequiel Leonard Age: 40 yrs Sex: Female : 1980 Arrival Date: 09/30/2021 Time: 19:50 Bed 15 Private MD: Diagnosis: Insect allergy status-wasp Presentation: 09/30 20:15 Chief complaint: Stung multiple yellow jackets on face, neck, left arm, back, and leg tw5 while working in the yard. Took Benadryl 25 mg PO prior to arrival. Coronavirus screen: At this time, the client does not indicate any symptoms associated with coronavirus-19. Ebola Screen: No symptoms or risks identified at this time. Onset: The symptoms/episode began/occurred acutely. Anaphylaxis evaluation, no signs or symptoms of anaphylaxis were noted. Initial Sepsis Screen: Does the patient meet any 2 criteria? No. Patient's initial sepsis screen is negative. Does the patient have a suspected source of infection? No. Patient's initial sepsis screen is negative. Risk Assessment: Do you want to hurt yourself or someone else? Patient reports no desire to harm self or others. Onset of symptoms was September 30, 2021. 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 - Social history:: Smoking status: Patient denies any tobacco usage or history of. Screenin:37 Abuse screen: Denies threats or abuse. Denies injuries from another. Nutritional ld1 screening: No deficits noted. Tuberculosis screening: No symptoms or risk factors identified. Fall Risk None identified. Assessment: 21:37 General: Appears in no apparent distress. comfortable, Behavior is calm, cooperative, ld1 appropriate for age. Pain: Denies pain. Neuro: Level of Consciousness is awake, alert, obeys commands, Oriented to person, place, time, situation. Cardiovascular: Capillary refill < 3 seconds Patient's skin is warm and dry. Respiratory: Airway is patent Respiratory effort is even, unlabored, Breath sounds are clear bilaterally. GI: Abdomen is flat, non-distended. : No signs and/or symptoms were reported regarding the genitourinary system. EENT: No signs and/or symptoms were reported regarding the EENT system. Derm: No signs and/or symptoms reported regarding the dermatologic system. Musculoskeletal: No signs and/or symptoms reported regarding the musculoskeletal system. Vital Signs: 20:15 BP 162 / 120; Pulse 105; Resp 20; Temp 97.8; Pulse Ox 100% on R/A; Weight 68.04 kg; tw5 Height 5 ft. 7 in. (170.18 cm); Pain 10/10; 21:37 BP 156 / 99; Pulse 98; Resp 18; Pulse Ox 100% on R/A; ld1 21:43 BP 117 / 93; Pulse 92; Resp 18; Pulse Ox 96% on R/A; ld1 20:15 Body Mass Index 23.49 (68.04 kg, 170.18 cm) tw5 ED Course: 19:50 Patient arrived in ED. ja2 19:59 Scooby Villela PA is PHCP. cp 19:59 Alex Arambula MD is Attending Physician. cp 20:19 Triage completed. tw5 20:19 Arm band placed on. tw5 21:37 Idania Villasenor, RN is Primary Nurse. ld1 21:37 Patient has correct armband on for positive identification. Placed in gown. Bed in low ld1 position. Call light in reach. Side rails up X2. night monitor on. Pulse ox on. NIBP on. Door closed. Noise minimized. Warm blanket given. 21:37 No provider procedures requiring assistance completed. ld1 22:32 Patient did not have IV access during this emergency room visit. eh3 Administered Medications: 20:30 Drug: SOLU-Medrol (methylPREDNISolone sodium succinate) 125 mg Route: IM; Site: left hb deltoid; 20:30 Drug: Benadryl (diphenhydrAMINE) 25 mg Route: IM; Site: right deltoid; hb 20:30 Drug: Albuterol HFA Inhaler 2 puffs Route: Inhalation; hb 20:30 Drug: Tylenol 1000 mg Route: PO; hb Medication: 21:37 VIS not applicable for this client. ld1 Outcome: 22:15 Discharge ordered by . cp 22:31 Discharged to home ambulatory. eh3 22:31 Condition: stable 22:31 Discharge instructions given to patient, Instructed on discharge instructions, follow up and referral plans. medication usage, Demonstrated understanding of instructions, follow-up care, medications. 22:32 Patient left the ED. eh3 Signatures: Scooby Villela PA PA cp Baxter, Heather, RN RN Idania Villasenor RN RN ld1 Cathy Roldan Tiffany 5 Apurva Espitia eh3
--- NOTE | 2021-09-30 22:16 | EDPHYS ---
Physician Documentation [facility] Name: Ezequiel Leonard Age: 40 yrs Sex: Female : 1980 Arrival Date: 09/30/2021 Time: 19:50 Bed 15 Private MD: ED Physician Alex Arambula HPI: 09/30 20:25 This 40 yrs old Female presents to ER via Ambulatory with complaints of Bee Sting, cp Abdominal Pain, Dizziness. 20:25 The patient presents with rash, shortness of breath. Onset: The symptoms/episode cp began/occurred today. 20:25 Associated signs and symptoms: Pertinent positives: abdominal pain, dizziness, cp shortness of breath, Pertinent negatives: fever, vomiting. Possible causes: patient reports being stung multiple times by wasp. At home the patient or guardian has treated the symptoms with took 25 mg oral Benadryl prior to arrival. 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 - Social history:: Smoking status: Patient denies any tobacco usage or history of. ROS: 20:30 Constitutional: Negative for body aches, chills, fever, poor PO intake. cp 20:30 Eyes: Negative for injury, pain, redness, and discharge. cp 20:30 ENT: Negative for drainage from ear(s), ear pain, sore throat, difficulty swallowing, difficulty handling secretions. 20:30 Cardiovascular: Positive for chest pain. 20:30 Respiratory: Positive for shortness of breath, Negative for cough, wheezing. 20:30 Abdomen/GI: Negative for vomiting, diarrhea, constipation. 20:30 Skin: Positive for rash. 20:30 Neuro: Negative for altered mental status, dizziness, headache, weakness. 20:30 All other systems are negative. Exam: 20:33 Head/Face: Normocephalic, atraumatic. cp 20:33 Constitutional: The patient appears in no acute distress, alert, awake, non-toxic, well developed, well nourished, anxious, tearful, crying 20:33 Eyes: Periorbital structures: appear normal, Conjunctiva: normal, no exudate, no injection, Sclera: no appreciated abnormality, Lids and lashes: appear normal, bilaterally. 20:33 ENT: External ear(s): are unremarkable, Nose: is normal, Mouth: Lips: moist, Oral mucosa: pink and intact, moist, Posterior pharynx: Airway: no evidence of obstruction, patent, swelling, is not appreciated, erythema, is not appreciated, exudate, is not appreciated. 20:33 Neck: ROM/movement: is normal, is supple, without pain, no range of motions limitations. 20:33 Chest/axilla: Inspection: multiple wasp stings to left upper chest, Palpation: tenderness, that is moderate, of the left clavicle and anterior aspect of left upper chest. 20:33 Cardiovascular: Rate: tachycardic, Rhythm: regular, Edema: is not appreciated, JVD: is not appreciated. 20:33 Respiratory: the patient does not display signs of respiratory distress, Respirations: normal, no use of accessory muscles, no retractions, labored breathing, is not present, Breath sounds: are clear throughout, no decreased breath sounds, no stridor, no wheezing. 20:33 Abdomen/GI: Inspection: abdomen appears normal, Palpation: soft, in all quadrants, mild abdominal tenderness, in all quadrants. 20:33 Back: ROM is normal. 20:33 Skin: rash can be described as hives, on the right arm and left arm. 20:33 Neuro: Orientation: to person, place \T\ time. Mentation: is normal, Motor: moves all fours, strength is normal, Sensation: is normal. Vital Signs: 20:15 BP 162 / 120; Pulse 105; Resp 20; Temp 97.8; Pulse Ox 100% on R/A; Weight 68.04 kg; tw5 Height 5 ft. 7 in. (170.18 cm); Pain 10/10; 21:37 BP 156 / 99; Pulse 98; Resp 18; Pulse Ox 100% on R/A; ld1 21:43 BP 117 / 93; Pulse 92; Resp 18; Pulse Ox 96% on R/A; ld1 20:15 Body Mass Index 23.49 (68.04 kg, 170.18 cm) tw5 MDM: 21:25 Patient medically screened. cp 22:15 Data reviewed: vital signs, nurses notes. cp 22:15 Differential diagnosis: anaphylaxis, angioedema, anxiety. Counseling: I had a detailed cp discussion with the patient and/or guardian regarding: the historical points, exam findings, and any diagnostic results supporting the discharge/admit diagnosis, to return to the emergency department if symptoms worsen or persist or if there are any questions or concerns that arise at home. Response to treatment: the patient's symptoms have markedly improved after treatment. ED course: VSS. Patient calm, reports symptoms markedly improved. No signs of respiratory distress. Will discharge to home for continued monitoring. Administered Medications: 20:30 Drug: SOLU-Medrol (methylPREDNISolone sodium succinate) 125 mg Route: IM; Site: left hb deltoid; 20:30 Drug: Benadryl (diphenhydrAMINE) 25 mg Route: IM; Site: right deltoid; hb 20:30 Drug: Albuterol HFA Inhaler 2 puffs Route: Inhalation; hb 20:30 Drug: Tylenol 1000 mg Route: PO; hb Disposition: 10/01 22:06 Co-signature as Attending Physician, Alex Arambula MD. rn Disposition Summary: 09/30/21 22:15 Discharge Ordered Location: Home cp Problem: new cp Symptoms: have improved cp Condition: Stable cp Diagnosis - Insect allergy status - wasp cp Followup: cp - With: Private Physician - When: 1 - 2 days - Reason: Recheck today's complaints Discharge Instructions: - Discharge Summary Sheet cp - Bee, Wasp, or Hornet Sting, Adult cp Forms: - Medication Reconciliation Form cp - Thank You Letter cp - Antibiotic Education cp - Prescription Opioid Use cp Prescriptions: - Prednisone 20 mg Oral Tablet - take 2 tablets by ORAL route once daily for 5 days; 10 tablet; Refills: 0, cp Product Selection Permitted - albuterol sulfate 90 mcg/actuation Inhalation HFA aerosol inhaler - inhale 1 puff by INHALATION route every 4-6 hours; 1 Inhaler; Refills: 0, cp Product Selection Permitted - Pepcid 20 mg Oral Tablet - take 1 tablet by ORAL route once daily for 10 days; 10 tablet; Refills: 0, cp Product Selection Permitted Signatures: Alex Arambula MD MD rn Page, Corey, PA PA cp Baxter, Heather, RN RN hb Wood, Tiffany tw5 Corrections: (The following items were deleted from the chart) 15:09/30 20:20 Constitutional: The patient appears in no acute distress, alert, awake, cp non-toxic, well developed, well nourished, anxious, tearful, crying cp 10/01 15:35 09/30 20:20 Head/Face: Normocephalic, atraumatic. cp cp 10/01 15:09/30 20:20 Eyes: Periorbital structures: appear normal, Conjunctiva: normal, no cp exudate, no injection, Sclera: no appreciated abnormality, Lids and lashes: appear normal, bilaterally, cp 10/01 15:09/30 20:20 ENT: External ear(s): are unremarkable, Nose: is normal, Mouth: Lips: cp moist, Oral mucosa: pink and intact, moist, Posterior pharynx: Airway: no evidence of obstruction, patent, swelling, is not appreciated, erythema, is not appreciated, exudate, is not appreciated, cp 10/01 14:09/30 20:20 Neck: ROM/movement: is normal, is supple, without pain, no range of motions cp limitations, cp 10/01 15:35 09/30 20:20 Chest/axilla: Inspection: multiple wasp stings to left upper chest, cp Palpation: tenderness, that is moderate, of the left clavicle and anterior aspect of left upper chest, cp 10/01 15:35 09/30 20:20 Cardiovascular: Rate: tachycardic, Rhythm: regular, Edema: is not cp appreciated, JVD: is not appreciated, cp 10/01 15:35 09/30 20:20 Respiratory: the patient does not display signs of respiratory distress, cp Respirations: normal, no use of accessory muscles, no retractions, labored breathing, is not present, Breath sounds: are clear throughout, no decreased breath sounds, no stridor, no wheezing, cp 10/01 15:35 09/30 20:20 Abdomen/GI: Inspection: abdomen appears normal, Palpation: soft, in all cp quadrants, mild abdominal tenderness, in all quadrants, cp 10/01 15:35 09/30 20:20 Back: ROM is normal, cp cp 10/01 14:09/30 20:20 Neuro: Orientation: to person, place \T\ time. Mentation: is normal, Motor: cp moves all fours, strength is normal, Sensation: is normal, cp 10/01 15:35 09/30 20:20 Skin: rash can be described as hives, on the right arm and left arm, cp cp
[2021-09-30 22:36] VITALS: TEMP 97.8
[2021-09-30 22:38] VITALS: BP 117/93; O2SAT 96
== END 2021-09-30 22:32 | disposition home or self-care (01) ==
LOC: ER 19:41
DX: Z91.038 Other insect allergy status (principal)
CPT/HCPCS: J1200; J2930

== ENCOUNTER 2022-11-12 16:08 | Emergency (ER) | payer SELFPAY ==
--- OUTSIDE RECORDS SUMMARY | 2022-11-12 16:11 | XMS REPORT | Continuity of Care Document ---
:1980 Author Organization [facility] t Address [address] [place] [address] [address] [place] [address] Care Team Providers Name Role Phone Unavailable Unavailable Unavailable Problems This patient has no known problems. Allergies, Adverse Reactions, Alerts This patient has no known allergies or adverse reactions. Medications This patient has no known medications. Procedures This patient has no known procedures. Results Test Description Test Time Test Comments Results Result [facility] e Comments SCR MAMM 2022-04-10 BILATERAL SREEHDAR 10:46:13 CAD DIGITAL Name: Itz : 1980 Sex: F - SCR MAMM BILATERAL SREEDHAR CAD DIGITALBILATERAL FIRST EVER DIGITAL SCREENING MAMMOGRAM 3D/2D WITH CAD: 04/07/2022LINICAL: Asymptomatic. Digital breast tomosynthesis was performed in addition to routine CC and MLO views. Current mammographic images were evaluated by [employer] CAD (computer-aided detection) software. No prior exams were available for comparison. The tissue of both breasts is heterogeneously dense. This may lower the sensitivity of mammography. There are benign calcifications in the left breast. No suspicious mass, architectural distortion, malignant type calcification, or lymph node abnormality detected. IMPRESSION: BENIGNThere is no mammographic evidence of malignancy. Resume annual screening mammography in one year. (04/08/2023) Agusto Markham/penrad:04/10/2022 10:46:13 Attending Technologist: Idania Fuller MM, [employer] MammographyImaging Technologist: Callie Davis MM, [employer] Mammographyletter sent: BIRADS 1-2 Normal Mammogram BI-RADS: 2 Benign
--- NOTE | 2022-11-12 17:28 | RAD REPORT ---
EXAM DESCRIPTION: CT - Head Brain Wo Cont - 11/12/2022 4:52 pm CLINICAL HISTORY: HEADACHE COMPARISON: HEAD BRAIN W O CONTRAST dated 10/13/2010 TECHNIQUE: Noncontrast head CT images were obtained without IV contrast. Multiplanar reformats were generated and reviewed. All CT scans are performed using dose optimization technique as appropriate and may include automated exposure control or mA/KV adjustment according to patient size. FINDINGS: No intracranial hemorrhage, mass, or edema. Midline structures are unremarkable. Normal ventricular caliber for age. Lou-white matter differentiation is preserved, without evidence of acute infarct. No abnormal extra- axial fluid collections. Mastoid air cells are well aerated. Multiple paranasal sinus mucous retention cysts. No acute bony findings. IMPRESSION: No evidence of an acute intracranial process.
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
[2022-11-12 18:37] VITALS: TEMP 97.7; O2SAT 100
[2022-11-12 18:41] VITALS: BP 148/91
== END 2022-11-12 17:42 | disposition home or self-care (01) ==
LOC: ER 16:08
DX: R51.9 Headache, unspecified (principal)
CPT/HCPCS: 70450; 99283